=== PATIENT | male | born 1990 | race American Indian/Alaskan Native ===

== ENCOUNTER 2020-08-14 18:53 | Emergency (ER) | payer SELFPAY ==
[2020-08-14 19:54] VITALS: BP 128/79
--- NOTE | 2020-08-14 20:22 | Emergency Department Report ---
Chief Complaint: Urogenital-Male Stated Complaint: STD CHECK Time Seen by Provider: 08/14/20 20:17 - HPI History of Present Illness: Patient presents to the ER today requesting STD check. Patient states that he has been having some slight itching to his penis but otherwise no other symptoms. Known exposure to an STD. He states that he does want to get checked for STDs. - Exam Vital Signs: Vital Signs 08/14/20 19:52 Temperature 98.2 F Pulse Rate 54 L Respiratory 18 Rate Blood Pressure 128/79 O2 Sat by Pulse 100 Oximetry MSE screening note: Focused history and physical exam performed. Due to findings the following was ordered: ED Medical Decision Making - Medical Decision Making Patient presents to the ER requesting STD check. Patient is well-appearing, nontoxic, not in any acute distress. He is neurologically intact with a normal gait. His vital signs are stable. At this time patient does not have a medical emergency. Patient given a list of outpatient clinics that he can follow-up with to get STD testing. Patient expressed understanding of instructions and agree with plan. Patient stable at time of discharge. ED Disposition for MSE Clinical Impression: Concern about STD in male without diagnosis Disposition: MED SCREENING EXAM-LEFT Condition: Stable ED Review of Systems ROS: Stated complaint: STD CHECK Other details as noted in HPI Comment: All other systems reviewed and negative Constitutional: denies: chills, fever ENT: denies: ear pain, throat pain, dental pain, hearing loss, epistaxis, congestion Respiratory: denies: cough, orthopnea, shortness of breath, SOB with exertion, SOB at rest Gastrointestinal: denies: abdominal pain, nausea, diarrhea Genitourinary: other (Penile itch). denies: urgency, dysuria, frequency, hematuria, discharge, testicular pain, testicular mass Skin: pruritus Neurological: denies: headache, weakness, paresthesias Psychiatric: denies: anxiety, depression, auditory hallucinations, visual duggan llucinations, homicidal thoughts, suicidal thoughts Hematological/Lymphatic: denies: easy bleeding, easy bruising ED Physical Exam - General Limitations: No Limitations General appearance: alert, in no apparent distress - Head Head exam: Present: atraumatic, normocephalic, normal inspection - Eye Eye exam: Present: normal appearance, PERRL, EOMI Pupils: Present: normal accommodation - Respiratory Respiratory exam: Absent: respiratory distress - Cardiovascular Cardiovascular Exam: Present: regular rate - Neurological Exam Neurological exam: Present: alert, oriented X3, CN II-XII intact, normal gait - Psychiatric Psychiatric exam: Present: normal affect, normal mood - Skin Skin exam: Present: intact
== END 2020-08-14 20:30 | disposition left against medical advice (07) ==
LOC: ED 18:53
DX: Z20.2 Contact with and (suspected) exposure to infections with a predominantly sexual mode of transmission (principal); Z53.21 Procedure and treatment not carried out due to patient leaving prior to being seen by health care provider